=== PATIENT | female | born 1930 | race Caucasian/White ===

== ENCOUNTER 2016-11-24 15:36 | Inpatient (IN) | payer OTHER ==
[~2016-11-24] VITALS: Ht 170.2 cm; Wt 49.9 kg
--- NOTE | ~2016-11-24 | H ---
[facility] [place] [address] HISTORY AND PHYSICAL Name: BRIGETTE SMITH Room #: 422-P [facility] [place] ..#: [id number] Admission: 11/24/16 Attend Phys: Brad Mackay Discharge: 11/27/16 Date of : 28 Report #: [id number] THIS REPORT FOR: //name// CC: Elijah Ruiz CHIEF COMPLAINT: Cough, congestion. HISTORY OF PRESENT ILLNESS: The patient is an 85-year-old female, who was admitted for treatment of respiratory illness. She has had cough and congestion for several days with a little shortness of breath. She has felt globally weak as well. There were no reports of fever or hypoxia. PAST MEDICAL HISTORY: Unknown. PAST SURGICAL HISTORY: Unknown. FAMILY HISTORY: Unknown. SOCIAL HISTORY: Denies alcohol or tobacco use. ALLERGIES: None. MEDICATIONS: Tramadol, Ativan, Singulair, metoprolol, Carafate, Ativan, Maxzide. REVIEW OF SYSTEMS: She denies headache, chest pain, shortness of breath, abdominal pain, nausea, vomiting, diarrhea, constipation, dysuria, syncope or fall. PHYSICAL EXAMINATION: VITAL SIGNS: Temperature 36.6, pulse 95, respirations 17, blood pressure 127/57, O2 sat 96% on room air. GENERAL: She is awake and alert, in no distress. LUNGS: Clear with some coarse cough and scattered wheezing. HEART: Regular. ABDOMEN: Soft, normoactive bowel sounds. EXTREMITIES: No edema. LABORATORY DATA: Potassium was 2.7 up to 3.4 with replacement. ASSESSMENT: 1. Chronic obstructive pulmonary disease exacerbation. 2. Electrolyte disturbance, likely due to medication. 3. Hypertension. PLAN: I will discontinue Maxzide with followup lab data. Pulmonary treatment [facility] [address] [place] [address] HISTORY AND PHYSICAL Name: BRIGETTE SMITH Room #: 422-P [facility] [place] [facility]#: [id number] Admission: 11/24/16 Attend Phys: Brad Mackay Discharge: 11/27/16 Date of : 28 Report #: [id number] with antibiotics, steroids, nebulized treatments and chest x-ray. Lovenox for DVT prophylaxis. <ELECTRONICALLY SIGNED> By: Arvind Angeles MD 11/30/16 1301 [id number] Arvind Angeles MD /nt
[~2016-11-24 15:36] MED LIST: ACCUNEB0.63 MG/3; AKWA TEARS EYE15 ML OT; ALBUTEROL2.5 MG/3 M INH; AMMONIUM LACTA225 GM; APAP500 PO; ASCRIPTIN 325325 MG PO; ASPIRIN325 PO; ATIVAN0.5 MG PO; AUGMENTIN 875875 M1 PO; B12INJ PO; BENGAY ULTRA S113 GM; BUPROPION XL150 MG OR; DARVOCET-N 1001 EACH PO; EPSOM SALT; GUAIFENESIN-DM S5 ML PO; LEVAQUIN 500 M500 M4 PO; LOPRESSOR100 MG OR; LOPRESSOR100 MG PO; METOPROLOL 100100 MG PO; MI ACID LIQUID355 ML PO; MOBIC7.5 MG PO; MOM; ONDANSETRON ODT4 MG; PREDNISONE 20 M20 M1 PO; PRILOSEC 20 MG20 MG OR; TRAMADOL HCL50 MG PO; TRIAMTERENE-HC1 EAC1 OR; TRIAMTERENE-HC1 EAC1 PO; TRIPLE ANTIBIOT30 G2; TYLENOL EX-STR500 M1 PO; TYLENOL EX-STR500 M2 PO; ULTRAM 50MG TAB50 MG PO; VITAMIN B-12500 MCG PO; VITAMIN B12 5500 MC1 OR; VITAMIN E 400I400 I1 OR; VITAMIN E400 UNI6 PO; VITAMIN E400 UNIT PO; WELLBUTRIN 100100 MG PO; ZANTAC 150MG T150 M1 PO; ZOFRAN4 MG PO
[2016-11-24] MEDS ORDERED: CARAFATE 1 GM TA1 G1 PO (18:25)
[2016-11-24] MEDS ORDERED: CLOBETASOL PROP50 M1 TOP (18:26)
[2016-11-24] MEDS ORDERED: LOPRESSOR50 PO (18:28)
[2016-11-24] MEDS ORDERED: SINGULAIR 10 MG10 M1 PO (18:35)
[2016-11-24] MEDS ORDERED: OTEZLA30 MG PO (18:35)
[2016-11-24] MEDS ORDERED: SPIRIVA INH (18:36)
[2016-11-24] MEDS ORDERED: OMEPRAZOLE20 M1 PO (18:37)
[2016-11-24] MEDS ORDERED: VITAMIN A AND1 EACH PO (18:38)
[2016-11-24] MEDS ORDERED: MILK OF MA2400 MG/10 PO (18:41)
[2016-11-24] MEDS ORDERED: NASONEX17 GM NASAL (18:42)
[2016-11-24 18:43] VITALS: BP 141/76
[2016-11-24] MEDS ORDERED: [UNRECOGNIZED DRUG - CODE] PO (18:43)
[2016-11-24] MEDS ORDERED: ROBITUSSIN DM118 ML PO (18:44)
[2016-11-24] MEDS ORDERED: TRIAMCINOLONE A80 G2 TOP (18:45)
[2016-11-24] MEDS ORDERED: MEN-PHOR LOTIO222 M1 TP (18:45)
[2016-11-24 19:28] VITALS: BP 136/67
[2016-11-24 22:59] LABS: HEMATOCRIT 40.5 % (37.0-47.0); HEMOGLOBIN 13.8 gm/dL (12.0-15.0); MCH 31.1 pg (26.0-34.0); MCHC 34.1 g/dL (28.0-37.0); MCV 91.2 fL (80.0-100.0); PLATELET COUNT 300 thou/uL (150-400); RBC 4.44 mil/uL (4.20-5.00); RDW 12.9 % (10.5-14.5); WBC 7.7 thou/uL (4.0-11.0)
[2016-11-24 23:12] LABS: ALBUMIN 3.3 g/dL (3.4-5.0); CALCIUM 11.7 mg/dL (8.5-10.1); CREATININE 0.8 mg/dL (0.6-1.0); TOTAL BILIRUBIN 0.3 mg/dL (<0.1-1.0); TOTAL PROTEIN 6.9 g/dL (6.4-8.2)
[2016-11-24 23:15] LABS: POTASSIUM 2.4 mmol/L (3.5-5.1)
[2016-11-24 23:43] LABS: MANUAL DIFF YES
[2016-11-25 02:32] LABS: ABSOLUTE NEUTROPHILS 4.4 thou/uL (1.4-8.2); ANISOCYTOSIS SLIGHT; ATYPICAL LYMPHS 2 %; TOTAL CELL COUNT 100
[2016-11-25 03:44] VITALS: BP 113/52
[2016-11-25 08:19] VITALS: BP 127/57
[2016-11-25 11:29] LABS: CALCIUM 11.5 mg/dL (8.5-10.1); CREATININE 0.7 mg/dL (0.6-1.0); POTASSIUM 3.4 mmol/L (3.5-5.1)
[2016-11-25 11:30] LABS: MAGNESIUM 1.5 mg/dL (1.8-2.4)
[2016-11-25 15:59] VITALS: BP 99/82
[2016-11-25 23:00] VITALS: BP 117/73
[2016-11-26 04:14] LABS: CALCIUM 10.5 mg/dL (8.5-10.1); CREATININE 0.9 mg/dL (0.6-1.0); POTASSIUM 4.3 mmol/L (3.5-5.1)
[2016-11-26 04:21] VITALS: BP 144/70
[2016-11-26 07:41] VITALS: BP 126/54
[2016-11-26 20:00] VITALS: BP 118/44
[2016-11-27 07:18] VITALS: BP 153/75
== END 2016-11-27 15:40 | DRG 190 ==
LOC: 4E 15:36
PROVIDERS: Internal Medicine; Internal Medicine Geriatric Medicine
DX: J44.1 Chronic obstructive pulmonary disease with (acute) exacerbation (principal); E43 Unspecified severe protein-calorie malnutrition; Z68.1 Body mass index [BMI] 19.9 or less, adult; R11.2 Nausea with vomiting, unspecified; F03.90 Unspecified dementia, unspecified severity, without behavioral disturbance, psychotic disturbance, mood disturbance, and anxiety; E87.6 Hypokalemia; I10 Essential (primary) hypertension
CPT/HCPCS: 10783